=== PATIENT | female | born 1965 | race Caucasian/White ===

== ENCOUNTER → 2021-04-10 10:30 | Outpatient (CLI) | payer MEDICARE, BC, SELFPAY ==
--- NOTE | ~2021-04-10 | MR_ITS ---
EXAMINATION: MR thoracic spine wo con EXAM DATE: 04/10/2021 11:26 INDICATION: Postlaminectomy syndrome, not elsewhere classified postlaminectomy syndrome. Mid back gary n. Bilateral leg pain. TECHNIQUE: Multi-sequential, multiplanar MR images of the thoracic spine were obtained without contra st. Sagittal T1, T2, T2 fat saturation, axial T2 weighted images reviewed. There is no prior study for comparison. FINDINGS: Vertebral body and disc heights are well-maintained. The spinal cord signal intensity and intrinsic m orphology is normal. Central canal and thoracic neural foramen are widely patent. There are no suspic ious marrow signal abnormalities. Mild thoracic facet arthropathy. IMPRESSION: Mild thoracic facet arthropathy. No stenosis. Reviewed, dictated and finalized at location B. NSTRATOR SEWING TECHNIQUES
--- NOTE | ~2021-04-10 | MR_ITS ---
EXAMINATION: MR lumbar spine wo [facility] EXAM DATE: 04/10/2021 11:29 INDICATION: Postlaminectomy syndrome, not elsewhere classified postlaminectomy syndrome. TECHNIQUE: Multi-sequential, multiplanar MR images of the lumbar spine were obtained without contrast . Sagittal T1, T2, T2 fat saturation images. Axial T2 weighted images. Correlation is made to CT l [facility] spine 04/27/2018. FINDINGS: Lumbar fusion L4-S1. L4 laminotomies and L5 laminectomies. Partially fused L5-S1 disc space with 6 mm retrolisthesis. There is severe disc disease at L3-4 with 5 mm retrolisthesis, mild loss o f L3 and L4 vertebral body heights at this endplate with edema suggesting could be acute or subacute mild compressions. There is also endplate degenerative signal change. There is moderate to severe los s of the L2-3 disc height with only mild endplate irregularity, and 4 mm retrolisthesis. The conus me dullaris terminates at the L1/2 level and has normal signal intensity and morphology. The nerve roots are clumped below the L2-3 level, consistent with chronic arachnoiditis. Level by level evaluation: T12-L1: Disc does not extend beyond the endplate margin. Facet arthropathy: Minimal. Neural foraminal stenosis: No stenosis. Central canal stenosis: No stenosis. L1-L2: There is a minimal diffuse disc bulge. Facet arthropathy: Mild. Neural foraminal stenosis: No stenosis. Central canal stenosis: No stenosis. L2-L3: There is a moderate diffuse disc bulge. Facet arthropathy: Mild to moderate. Neural foraminal stenosis: No stenosis. Central canal stenosis: Mild to moderate. L3-L4: There is a moderate to large diffuse disc bulge. Facet arthropathy: Moderate, but partially fused. Neural foraminal stenosis: Mild to moderate bilateral. Central canal stenosis: Moderate. L4-L5: There is a mild diffuse disc bulge. Facet arthropathy: Moderate, fused. Neural foraminal stenosis: Mild bilateral. Central canal stenosis: Posterior decompression. L5-S1: Partially fused Facet arthropathy: Poorly visualized. Neural foraminal stenosis: Probably moderate bilateral. Central canal stenosis: Posterior decompression. Correlating to prior CT 2018 study, development of the mild compressions at L3 and L4, progression in the L3-4 disc disease and retrolisthesis. Surgical changes were present on that exam. IMPRESSION: 1. Cauda equina clumping, chronic arachnoiditis. 2. Acute or subacute mild compression fractures at L3-4 endplates, severe disc disease and grade 1 r etrolisthesis. 3. Other chronic findings above. Reviewed, dictated and finalized at location B. ETICS DIRECTOR IMPRESSION: 1. Cauda equina clumping, chronic arachnoiditis. 2. Acute or subacute mild compression fractures at L3-4 endplates, severe disc disease and grade 1 retrolisthesis. 3. Other chronic findings above.
== END ==
DX: M96.1 Postlaminectomy syndrome, not elsewhere classified (principal)
CPT/HCPCS: 72146; 72148